=== PATIENT | female | born 1950 | race Caucasian/White ===

== ENCOUNTER → 2017-01-17 | Outpatient (CLI) | payer OTHER ==
--- NOTE | 2017-01-17 15:50 | PCVCIMAG ---
APPROVED REPORT Study performed: 01/17/2017 14:12:07 EXAM: Comprehensive 2D, Doppler, and color-flow Echocardiogram Patient Location: Echo lab Status: routine BSA: 1.88 HR: 98 bpmBP: 142/80 mmHg Rhythm: NSR Other Information Study Quality: AdequateFair Indications Atrial Fibrillation Abnormal chest xray. hypertension. 2D Dimensions IVSd: 9.20 (7-11mm)LVOT Diam: 18.28 (18-24mm) LVDd: 46.18 mm PWd: 6.73 (7-11mm)Ascending Ao: 37.66 (22-36mm) LVDs: 38.03 (25-40mm) Left Atrium: 35.58 (27-40mm) Aortic Root: 31.28 mm LV Single Plane 4CH: 58.79 % LV Single Plane 2CH: 53.70 %Harvey's LVEF: 56.24 % Biplane EF: 58.9 % Volumes Left Atrial Volume (Systole) Single Plane 4CH: 55.61 mLSingle Plane 2CH: 46.92 mL LA ESV Index: 29.00 mL/m2 Aortic Valve AoV Peak Javon.: 2.08 m/s AO Peak Gr.: 17.28 mmHgLVOT Max P.01 mmHg LVOT Max V: 1.12 m/s LV Vmax: 1.41 cm2 AI Vmax: 4.14 m/s AI [place]: 4.49 m/s2 AI PHT: 267.80 ms Mitral Valve E/A Ratio: 1.0 MV Decel. Time: 120.14 ms MV E Max Javon.: 1.03 m/s MV A Javon.: 1.07 m/s MV PHT: 34.84 ms IVRT: 114.19 ms Left Ventricle The left ventricle is normal size. There is normal LV segmental wall motion. There is normal left ventricular wall thickness. Left ventricular systolic function is normal. The left ventricular ejection fraction is within the normal range. LVEF is 55-60%. Right Ventricle The right ventricle is normal size. The right ventricular systolic function is normal. Atria The left atrium size is normal. The right atrium size is normal. Aortic Valve The Aortic valve is sclerotic. Trace aortic regurgitation. There is no aortic valvular stenosis. Mitral Valve The mitral valve is normal in structure. There is no mitral valve regurgitation noted. No evidence of mitral valve stenosis. Tricuspid Valve The tricuspid valve is normal in structure. There is no tricuspid valve regurgitation noted. Pulmonic Valve The pulmonary valve is normal in structure. There is no pulmonic valvular regurgitation. Great Vessels The aortic root is normal in size. IVC is normal in size and collapses with >50% inspiration Pericardium Trace to small pericardial effusion. <Conclusion> The left ventricle is normal size. Left ventricular systolic function is normal. The right ventricle is normal size. The Aortic valve is sclerotic. The mitral valve is normal in structure.
== END | disposition home or self-care (01) ==
LOC: PCVCIMAG 13:48
PROVIDERS: ATTEND Internal Medicine Cardiovascular Disease
DX: I35.1 Nonrheumatic aortic (valve) insufficiency (principal); I31.3 Pericardial effusion (noninflammatory); I48.91 Unspecified atrial fibrillation; I10 Essential (primary) hypertension
CPT/HCPCS: 93306

== ENCOUNTER → 2017-03-13 | Outpatient (CLI) | payer OTHER | END | disposition home or self-care (01) | LOC: PCVCCLINIC 09:50 | PROVIDERS: ATTEND Internal Medicine Cardiovascular Disease | DX: I25.10 Atherosclerotic heart disease of native coronary artery without angina pectoris (principal); R09.89 Other specified symptoms and signs involving the circulatory and respiratory systems; E78.00 Pure hypercholesterolemia, unspecified; I10 Essential (primary) hypertension; Z79.82 Long term (current) use of aspirin; Z79.899 Other long term (current) drug therapy | CPT/HCPCS: 93005; G0463 ==

== ENCOUNTER → 2017-03-16 | Outpatient (CLI) | payer OTHER ==
--- NOTE | 2017-03-16 14:55 | PCVCIMAG ---
EXAM: BILATERAL CAROTID DUPLEX INDICATION: Carotid Occlusive Disease. FINDINGS: Doppler Measurements (centimeters per second): RIGHT: Peak CCA-86, Peak ECA-55, Diastolic ICA-36, Peak ICA-94, ICA/CCA Ratio-1.1. LEFT: Peak CCA-95, Peak ECA-46, Diastolic ICA-30, Peak ICA-98, ICA/CCA Ratio-1.0. RIGHT CAROTID: The carotid bulb has no significant plaque. The proximal internal carotid artery shows no significant stenosis. The common carotid artery shows no significant stenosis. The external carotid artery shows no significant stenosis. LEFT CAROTID: The carotid bulb has no significant plaque. The proximal internal carotid artery shows no significant stenosis. The common carotid artery shows no significant stenosis. The external carotid artery shows no significant stenosis. Antegrade flow in both vertebral arteries. IMPRESSION: No significant stenosis of the right internal carotid artery with no significant plaque. No significant stenosis of the left internal carotid artery with no significant plaque. LOC:[place] [id number]
== END | disposition home or self-care (01) ==
LOC: PCVCIMAG 12:45
PROVIDERS: ATTEND Internal Medicine Cardiovascular Disease
DX: I10 Essential (primary) hypertension (principal); R09.89 Other specified symptoms and signs involving the circulatory and respiratory systems; E78.5 Hyperlipidemia, unspecified
CPT/HCPCS: 93880

== ENCOUNTER → 2017-10-30 | Outpatient (CLI) | payer BC, OTHER | END | disposition home or self-care (01) | LOC: PCVCIMAG 13:53 | DX: I25.10 Atherosclerotic heart disease of native coronary artery without angina pectoris (principal); I10 Essential (primary) hypertension; E78.5 Hyperlipidemia, unspecified | CPT/HCPCS: 93325; 93351 ==

== ENCOUNTER → 2018-07-30 | Outpatient (CLI) | payer MEDICARE ==
--- NOTE | 2018-07-30 10:23 | PCVCIMAG ---
APPROVED REPORT Study performed: 07/30/2018 09:14:50 EXAM: Comprehensive 2D, Doppler, and color-flow Echocardiogram Patient Location: Echo lab Status: routine BSA: 1.72 HR: 61 bpmBP: 140/80 mmHg Rhythm: NSR Other Information Study Quality: Good Risk Factors: Cardiac Risk Factors: HTN, Hyperlipidemia Indications CAD Hypertension/HDD hyperlipidemia 2D Dimensions IVSd: 12.43 (7-11mm)LVOT Diam: 19.88 (18-24mm) LVDd: 47.68 mm PWd: 8.74 (7-11mm)Ascending Ao: 38.93 (22-36mm) LVDs: 37.04 (25-40mm) Left Atrium: 37.68 (27-40mm) Aortic Root: 31.71 mm LV Single Plane 4CH: 52.55 % LV Single Plane 2CH: 54.25 % Biplane EF: 52.8 % Volumes Left Atrial Volume (Systole) Single Plane 4CH: 61.36 mLSingle Plane 2CH: 52.50 mL LA ESV Index: 33.00 mL/m2 Aortic Valve AoV Peak Javon.: 1.77 m/s AO Peak Gr.: 12.59 mmHgLVOT Max P.07 mmHg LVOT Max V: 1.01 m/s LV Vmax: 1.76 cm2 AI Vmax: 4.60 m/s AI Hawkins: 2.69 m/s2 AI PHT: 495.85 ms Mitral Valve E/A Ratio: 0.9 MV Decel. Time: 134.33 ms MV E Max Javon.: 0.76 m/s MV A Javon.: 0.83 m/s IVRT: 117.65 ms TDI E/Lateral E': 6.33E/Medial E': 10.86 Medial E' Javon.: 0.07 m/s Lateral E' Javon.: 0.12 m/s Pulmonary Valve PV Peak Gr.: 3.15 mmHg Pulmonary Vein P Vein S: 0.51 m/sP Vein A: 0.28 m/s P Vein D: 0.31 m/sP Vein A Dur.: 58.8 msec P Vein S/D Ratio: 1.65 Tricuspid Valve TR Peak Javon.: 1.86 m/s TR Peak Gr.: 13.84 mmHg Left Ventricle The left ventricle is normal size. There is normal LV segmental wall motion. There is normal left ventricular wall thickness. Left ventricular systolic function is normal. The left ventricular ejection fraction is within the normal range. LVEF is 55-60%. Right Ventricle The right ventricle is normal size. The right ventricular systolic function is normal. Atria Left atrium is mildly dilated. The right atrium size is normal. Aortic Valve The aortic valve is normal in structure. Mild to moderate aortic regurgitation. There is no aortic valvular stenosis. Mitral Valve The mitral valve is normal in structure. Mild mitral regurgitation. No evidence of mitral valve stenosis. Tricuspid Valve The tricuspid valve is normal in structure. Trace tricuspid regurgitation. Pulmonary artery pressure is 21mmHg. Pulmonic Valve The pulmonary valve is normal in structure. There is no pulmonic valvular regurgitation. Great Vessels The aortic root is normal in size. IVC is normal in size and collapses >50% with inspiration. Pericardium There is no pericardial effusion. <Conclusion> The left ventricle is normal size. There is normal left ventricular wall thickness. Left ventricular systolic function is normal. The right ventricle is normal size. Left atrium is mildly dilated. The right atrium size is normal. Mild to moderate aortic regurgitation. Mild mitral regurgitation. Trace tricuspid regurgitation. Pulmonary artery pressure is 21mmHg.
== END | disposition home or self-care (01) ==
LOC: PCVCIMAG 08:00
PROVIDERS: ATTEND Internal Medicine Cardiovascular Disease
DX: I08.0 Rheumatic disorders of both mitral and aortic valves (principal); I25.10 Atherosclerotic heart disease of native coronary artery without angina pectoris; I10 Essential (primary) hypertension; E78.00 Pure hypercholesterolemia, unspecified; M81.0 Age-related osteoporosis without current pathological fracture; E78.5 Hyperlipidemia, unspecified; Z79.82 Long term (current) use of aspirin
CPT/HCPCS: 93005; 93306; G0463